=== PATIENT | male | born 1965 | race Caucasian/White ===

== ENCOUNTER 2017-10-03 14:51 | Emergency (ER) | payer OTHER ==
--- NOTE | 2017-10-03 15:02 | PDOC ---
History of Present Illness - General Stated Complaint: ABD PAIN Time Seen by Provider: 10/03/17 15:01 History Source: Patient Exam Limitations: No Limitations - History of Present Illness Initial Comments: This is a 51 YOM with h/o EtOH cirrhosis, liver cancer dx about one month ago, recent intraperitoneal chemo catheter placement (last week), and recent liver lesion ablation (last week) who was BIBA from [facility] for 10/10 abdominal pain worsening for the past week, acutely much worse since yesterday and worst in the suprapubic region, as well as chills and and rapid palpitations. The patient notes that the pain started immediately after getting his two abdominal procedures a week ago, and it has worsened since that time. Two days ago he relapsed on EtOH after abstaining for ~5 months, and he drank a large amount of vodka over the course of 24 hours. The pain worsened after this binge. He denies fever, vomiting, constipation, chest pain, SOB (other than caused by the abdominal pain), skin rash, skin color change, or other symptoms. Past History - Past Medical History Allergies/Adverse Reactions: Allergies Allergy/AdvReac Type Severity Reaction Status Date / Time shellfish derived Allergy Verified 12/11/15 18:24 hayfever Allergy Uncoded 12/11/15 18:24 Home Medications: Ambulatory Orders Spironolactone [Aldactone] 50 mg PO DAILY 12/11/15 Ferrous Sulfate [Feosol] 325 mg PO TIDCM #90 ud 12/15/15 Spironolactone [Aldactone -] 50 mg PO DAILY #30 tablet 12/15/15 Anemia: No Asthma: No Cancer: No Cardiac Disorders: Yes (Weak heart) CVA: No COPD: No CHF: No Dementia: No Diabetes: No GI Disorders: No Disorders: No HTN: Yes Hypercholesterolemia: No Kidney Stones: No Liver Disease: Yes (Cirrhosis) Seizures: No Thyroid Disease: No - Surgical History Abdominal Surgery: No Appendectomy: No Cardiac Surgery: No Cholecystectomy: No Lung Surgery: No Neurologic Surgery: No Orthopedic Surgery: Yes (R KNEE MINISCUS REPAIR R WRIST ORIF ) - Reproductive History Testicular Surgery: No - Suicide/Smoking/Psychosocial Hx Smoking History: Never smoked Hx Alcohol Use: Yes Drug/Substance Use Hx: No Substance Use Type: Alcohol Hx Substance Use Treatment: No Abd/GI Specific PMHX - Complaint Specific PMHX Hepatitis: No Pancreatitis: No Review of Systems - Review of Systems Able to Perform ROS?: Yes Constitutional: Yes: Chills, Malaise. No: Fever, Unexplained wgt Loss HEENTM: No: Nose Congestion, Throat Pain Respiratory: No: Cough, Shortness of Breath Cardiac (ROS): No: Chest Pain, Palpitations ABD/GI: Yes: Nausea, Other (abdominal pain). No: Constipated, Vomiting : No: Burning, Dysuria Musculoskeletal: No: Back Pain, Neck Pain Integumentary: No: Bruising, Rash Neurological: No: Headache, Numbness, Tingling, Weakness, Dizziness Endocrine: No: Unexplained Weight Gain, Unexplained Weight Loss *Physical Exam - Physical Exam General Appearance: Yes: Nourished, Other. No: Apparent Distress HEENT: positive: EOMI, Normal Voice, Hearing Grossly Normal. negative: Scleral Icterus (R), Scleral Icterus (L), Nasal Congestion Neck: positive: Trachea midline, Supple. negative: Tender, Rigid Respiratory/Chest: positive: Lungs Clear, Normal Breath Sounds. negative: Respiratory Distress, Crackles, Rhonchi, Stridor, Wheezing Cardiovascular: positive: Regular Rhythm, Regular Rate. negative: Murmur Gastrointestinal/Abdominal: positive: Normal Bowel Sounds, Soft. negative: Tender, Organomegaly, Pulsatile Mass, Guarding Musculoskeletal: positive: Normal Inspection. negative: Decreased Range of Motion, Vertebral Tenderness Extremity: positive: Normal Capillary Refill, Normal Inspection, Normal Range of Motion. negative: Tender, Cyanosis Integumentary: positive: Normal Color, Dry, Warm. negative: Erythema, Rash, Bruising Neurologic: positive: continuity coordinator II-XII NML intact, Fully Oriented, Alert, Normal Mood/ Affect, Normal Response, Motor Strength / ED Treatment Course - LABORATORY CBC & Chemistry Diagram: 10/03/17 16:00 10/03/17 16:00
[2017-10-03] MEDS ORDERED: SODIUM CHLORIDE 1,000 ML IV STA ×2 (15:22→20:43)
[2017-10-03] MEDS ORDERED: diazePAM CARPU-JECT 10 MG/2 ML DISP.SYRIN IVPUSH ONE (15:24)
[2017-10-03 15:28] VITALS: BMI 31.3
--- NOTE | 2017-10-03 15:51 | PDOC ---
Attending Attestation - Resident Resident Name: Gale Griffin - ED Attending Attestation I have performed the following: I have examined & evaluated the patient, The case was reviewed & discussed with the resident, I agree w/resident's findings & plan, Exceptions are as noted - HPI HPI: 10/03/17 15:46 "The patient is a 51 year old male, with a significant PMH of chronic alcohol abuse, liver cancer, cirrhosis, heart failure, who presents to the emergency department via [facility] with diffuse abdominal pain rated 10/10 in intensity, palpitations and chills. The patient states that he was recently diagnosed with liver cancer 1 month ago. Last week, he had an intraperitoneal chemo catheter placed and liver lesion ablation performed. He reports mild pain afterwards but states he was feeling well until yesterday. Pt states he has been sober for 4 months but admits to falling off the wagon and drinking vodka all day yesterday. He states that his abdominal pain began that evening after drinking. The patient denies chest pain, shortness of breath, headache and dizziness. Denies fever, nausea, vomit, diarrhea and constipation. Denies dysuria, frequency, urgency and hematuria. Allergies: shellfish derived " - Physicial Exam PE: 10/03/17 15:49 "GENERAL: Awake, alert, and fully oriented, + tremulous. HEAD: No signs of trauma EYES: PERRLA, EOMI, sclera anicteric, conjunctiva clear ENT: Auricles normal inspection, hearing grossly normal, nares patent, oropharynx clear without exudates. Moist mucosa NECK: Nontender, no stepoffs, Normal ROM, supple, no lymphadenopathy, JVD, or masses LUNGS: Breath sounds equal, clear to auscultation bilaterally. No wheezes, and no crackles HEART: tachycardic, normal S1 and S2, no murmurs, rubs or gallops ABDOMEN: + distended with + fluid wave, + periumbilical tenderness, No masses EXTREMITIES: Normal range of motion, no edema. No clubbing or cyanosis. No cords, erythema, or tenderness NEUROLOGICAL: Cranial nerves II through XII intact. 5/5 strength and sensation in all extremities, Normal speech, normal gait, normal cerebellar function SKIN: Warm, Dry, normal turgor, no rashes or lesions noted. " - Medical Decision Making 10/03/17 15:51 51 M with abdominal pain s/p ETOH abuse yesterday. Possible pancreatitis vs gastritis. Pt with h/o liver cancer and cirrhosis. No fevers, but will need to r /o SBP. ALso consider cholecystitis. - Labs - Bedside US to evaluate for fer and ascites - Possible paracentesis - CT abd/pelvis - IVF, benzos, morphine 10/03/17 16:17 Bedside sono reveals no evidence of acute fer, no drainable pocket for paracentesis <Anuj Woody - Last Filed: 10/03/17 16:18> Attestations - Attestations 10/03/17 15:54 Documentation prepared by Kuldeep Couch, acting as certified medical aide for Anuj Woody MD. <Kuldeep Couch - Last Filed: 10/03/17 15:54>
[2017-10-03] MEDS ORDERED: morphine CARPU-JECT 4 MG/1 ML DISP.SYRIN IVPUSH ONE ×2 (15:52→18:33)
[2017-10-03 16:11] LABS: BASO % 0.3 % (0-2.0); EOS % 0.2 % (0-4.5); HEMATOCRIT 29.5 % (35.4-49); LYMPH % 3.8 % (8-40); MCH 32.5 pg (25.7-33.7); MCHC 33.8 g/dl (32.0-35.9); MEAN CELL VOLUME 96.2 fl (80-96); MEAN PLT VOLUME 10.2 fl (7.5-11.1); MONO % 7.3 % (3.8-10.2); NEUT % 88.4 % (42.8-82.8); PLATELET COUNT 106 K/MM3 (134-434); RBC 3.07 M/mm3 (4.00-5.60); RDW 16.2 % (11.9-15.9); WHITE BLOOD COUNT 4.5 K/mm3 (4.0-10.0)
[2017-10-03 16:31] LABS: INR 1.44 (0.82-1.09); PROTHROMBIN TIME (PATIENT) 16.3 SEC (9.7-13.0)
[2017-10-03 16:33] LABS: VENOUS PH 7.46 (7.32-7.42)
[2017-10-03 16:34] LABS: ACTIVATED PTT 33.2 SECONDS (25.2-36.5)
[2017-10-03] MEDS ORDERED: morphine SULFATE 4 MG/ML VIAL ONE ×2 (16:36→19:18)
[2017-10-03 16:38] LABS: VENOUS PO2 37.9 mmHg (28-48)
[2017-10-03 17:39] LABS: URINE APPEARANCE CLEAR; URINE BILIRUBIN NEGATIVE (<2.0 mg/dL); URINE COLOR DKYELLOW; URINE GLUCOSE (UA) NEGATIVE (NEGATIVE); URINE KETONE NEGATIVE (NEGATIVE); URINE LEUK ESTERASE NEGATIVE (NEGATIVE); URINE NITRITE NEGATIVE (NEGATIVE); URINE PROTEIN NEGATIVE (NEGATIVE); URINE UROBILINOGEN 4.0 E.U/dl mg/dL (0.2-1.0)
[2017-10-03 17:43] LABS: EPI CELLS RARE /HPF (FEW); URINE MUCUS RARE
[2017-10-03] MEDS ORDERED: SODIUM CHLORIDE 0.9% 500 ML INFUS.BAG IV ONE (18:00)
[2017-10-03 18:17] LABS: SGPT/ALT 36 U/L (12-78)
[2017-10-03 18:25] LABS: ALBUMIN 3.3 g/dl (3.4-5.0); ALK PHOS 107 U/L (45-117); ANION GAP 11 (8-16); BILIRUBIN,TOTAL 2.4 mg/dL (0.2-1.0); BLOOD UREA NITROGEN 14 mg/dL (7-18); CHLORIDE 103 mmol/L (98-107); CO2 24 mmol/L (21-32); CREATININE 0.7 mg/dL (0.7-1.3); GLUCOSE,RANDOM 136 mg/dL (74-106); POTASSIUM 4.1 mmol/L (3.5-5.1); SGOT/AST 44 U/L (15-37); SODIUM 138 mmol/L (136-145); TOT PROT 6.7 g/dl (6.4-8.2)
--- NOTE | 2017-10-03 19:06 | PDOC ---
*Physical Exam - Vital Signs Last Vital Signs Temp Pulse Resp BP Pulse Ox 112 H 18 147/84 100 10/03/17 15:08 10/03/17 15:08 10/03/17 15:08 10/03/17 15:20 ED Treatment Course - LABORATORY CBC & Chemistry Diagram: 10/03/17 16:00 10/03/17 16:00 - ADDITIONAL ORDERS Additional order review: Laboratory Results 10/03/17 10/03/17 10/03/17 17:20 17:00 16:53 PT with INR INR PTT (Actin FS) VBG pH POC VBG pCO2 POC VBG pO2 Mixed VBG HCO3 Sodium Potassium Chloride Carbon Dioxide Anion Gap BUN Creatinine Creat Clearance w eGFR Random Glucose Lactic Acid 1.8 Calcium Total Bilirubin AST ALT Alkaline Phosphatase Ammonia 55.4 H Creatine Kinase Creatine Kinase Index CK-MB (CK-2) Total Protein Albumin Lipase Urine Color Dkyellow Urine Appearance Clear Urine pH 6.0 Ur Specific [place] 1.020 Urine Protein Negative Urine Glucose (UA) Negative Urine Ketones Negative Urine Blood 1+ H Urine Nitrite Negative Urine Bilirubin Negative Urine Urobilinogen 4.0 e.u/dl Ur Leukocyte Esterase Negative Urine WBC (Auto) <1 Urine RBC (Auto) 1 Ur Epithelial Cells Rare Urine Mucus Rare Blood Type Antibody Screen 10/03/17 10/03/17 10/03/17 16:13 16:00 16:00 PT with INR INR PTT (Actin FS) VBG pH 7.46 H POC VBG pCO2 35.0 L POC VBG pO2 37.9 Mixed VBG HCO3 24.5 Sodium Potassium Chloride Carbon Dioxide Anion Gap BUN Creatinine Creat Clearance w eGFR Random Glucose Lactic Acid Calcium Total Bilirubin AST ALT Alkaline Phosphatase Ammonia Creatine Kinase Creatine Kinase Index CK-MB (CK-2) Cancelled Total Protein Albumin Lipase Cancelled Urine Color Urine Appearance Urine pH Ur Specific [place] Urine Protein Urine Glucose (UA) Urine Ketones Urine Blood Urine Nitrite Urine Bilirubin Urine Urobilinogen Ur Leukocyte Esterase Urine WBC (Auto) Urine RBC (Auto) Ur Epithelial Cells Urine Mucus Blood Type Antibody Screen 10/03/17 10/03/17 10/03/17 16:00 16:00 16:00 PT with INR 16.30 H INR 1.44 H PTT (Actin FS) 33.2 VBG pH POC VBG pCO2 POC VBG pO2 Mixed VBG HCO3 Sodium 138 Potassium 4.1 Chloride 103 Carbon Dioxide 24 Anion Gap 11 BUN 14 D Creatinine 0.7 Creat Clearance w eGFR > 60 Random Glucose 136 H D Lactic Acid Calcium 8.0 L Total Bilirubin 2.4 H D AST 44 H D ALT 36 Alkaline Phosphatase 107 Ammonia Creatine Kinase 180 Creatine Kinase Index Cancelled CK-MB (CK-2) Cancelled Total Protein 6.7 D Albumin 3.3 L D Lipase Urine Color Urine Appearance Urine pH Ur Specific [place] Urine Protein Urine Glucose (UA) Urine Ketones Urine Blood Urine Nitrite Urine Bilirubin Urine Urobilinogen Ur Leukocyte Esterase Urine WBC (Auto) Urine RBC (Auto) Ur Epithelial Cells Urine Mucus Blood Type Cancelled Antibody Screen Cancelled 10/03/17 10/03/17 15:34 15:34 PT with INR INR PTT (Actin FS) VBG pH POC VBG pCO2 POC VBG pO2 Mixed VBG HCO3 Sodium Potassium Chloride Carbon Dioxide Anion Gap BUN Creatinine Creat Clearance w eGFR Random Glucose Lactic Acid 2.9 H* Calcium Total Bilirubin AST ALT Alkaline Phosphatase Ammonia 52.4 H Creatine Kinase Creatine Kinase Index CK-MB (CK-2) Total Protein Albumin Lipase Urine Color Urine Appearance Urine pH Ur Specific [place] Urine Protein Urine Glucose (UA) Urine Ketones Urine Blood Urine Nitrite Urine Bilirubin Urine Urobilinogen Ur Leukocyte Esterase Urine WBC (Auto) Urine RBC (Auto) Ur Epithelial Cells Urine Mucus Blood Type Antibody Screen 10/03/17 16:00 RBC 3.07 L MCV 96.2 H MCHC 33.8 RDW 16.2 H MPV 10.2 D Neutrophils % 88.4 H D Lymphocytes % 3.8 L D Monocytes % 7.3 Eosinophils % 0.2 D Basophils % 0.3 - Medications Given in the ED: ED Medications Discontinued Medications Generic Name Dose Route Start Last Admin Trade Name Freq PRN Reason Stop Dose Admin Diazepam 5 mg 10/03/17 15:24 10/03/17 17:34 Valium Injection - IVPUSH 10/03/17 15:25 Not Given ONCE ONE Sodium Chloride 1,000 mls @ 1,000 mls/hr 10/03/17 15:22 10/03/17 16:33 Normal Saline - IV 10/03/17 16:21 1,000 mls/hr ASDIR STA Administration Morphine Sulfate 4 mg 10/03/17 15:52 10/03/17 16:52 Morphine Injection - IVPUSH 10/03/17 15:53 4 mg ONCE ONE Administration Sodium Chloride 500 ml 10/03/17 18:00 10/03/17 18:03 Normal Saline - IV 10/03/17 18:01 500 ml ONCE ONE Administration Medical Decision Making - Medical Decision Making 10/03/17 19:[address] Mcpherson. 10/03/17 20:11 CT expressed concern over abdomen/pelvis w/ contrast as patient allergic to shellfish. Discussed with patient who endorsed having IV contrast previously. Patient elected to proceed with scan. 10/03/17 21:39 CT revealed incarcerated umbilical hernia containing small bowel w/ resultant proximal small bowel obstruction. Discussed with surgery team who believe patient would benefit from tertiary care center services due to cirrhotic status. Discussed with Dr. Rodriguez (surgery) at [facility] who accepted patient for further care. Transferring to [facility]. *DC/Admit/Observation/Transfer Diagnosis at time of Disposition: Umbilical hernia, incarcerated - Discharge Dispostion Disposition: TRANSFER ACUTE CARE/OTHER HOSP - Referrals - Patient Instructions - Post Discharge Activity
[2017-10-03] MEDS ORDERED: ONDANSETRON 4 MG/2 ML VIAL IVPUSH ONE (20:43)
[2017-10-03] MEDS ORDERED: ONDANSETRON 4 MG/2 ML VIAL ONE (20:49)
[2017-10-03] MEDS ORDERED: chlordiazePOXIDE HCL 25 MG CAPSULE PO ONE (21:49)
--- NOTE | 2017-10-03 21:50 | PN ---
Progress Note (short form) - Note Progress Note: surgery 51m with heart failure, etoh cirrhosis, metastatic liver ca, on intrperitoneal chemotherapy, presented for abd pain with ct showing sbo secondary to incarcerated umbilical hernia. ascites noted on ct with cirrhotic liver changes and likely malignancy. Laboratory Tests 10/03/17 10/03/17 10/03/17 16:00 16:00 16:00 Plt Count 106 L D PT with INR 16.30 H Total Bilirubin 2.4 H D Ammonia 10/03/17 16:53 Plt Count PT with INR Total Bilirubin Ammonia 55.4 H A/P Sbo in terminal liver ca, cirrhotic, chf, continued etoh usage. Pt is not a candidate for surgery at a community hospital due to liver disease and heart disease. Recommend transfer to tertiary care center. Discussed with ER physician. Should have ngt placed carefully to avoid trauma to likely varices.
[2017-10-03] MEDS ORDERED: chlordiazePOXIDE HCL 25 MG CAPSULE ONE (21:51)
[2017-10-03] MEDS ORDERED: chlordiazePOXIDE 5 MG CAPSULE PO ONE (22:00)
[2017-10-03] MEDS ORDERED: morphine CARPU-JECT 2 MG/1 ML DISP.SYRIN IVPUSH ONE (22:55)
[2017-10-03] MEDS ORDERED: MORPHINE SULFATE 2 MG/ML VIAL ONE (23:10)
[2017-10-03 23:28] VITALS: BP 158/84; PULSE 90; TEMP 98.1
--- NOTE | 2017-10-04 10:42 | EKG ---
Test Reason : Blood Pressure : / mmHG Vent. Rate : 109 BPM Atrial Rate : 109 BPM P-R Int : 138 ms QRS Dur : 100 ms QT Int : 368 ms P-R-T Axes : -24 -12 034 degrees QTc Int : 495 ms SINUS TACHYCARDIA NONSPECIFIC ST AND T WAVE ABNORMALITY ABNORMAL ECG NO PREVIOUS ECGS AVAILABLE Confirmed by NAREN TAYLOR, KUMAR ([id number]) on 10/04/2017 10:41:47 AM Referred By: Confirmed By:KUMAR SNEED MD
== END 2017-10-03 23:43 | disposition short-term general hospital (02) ==
LOC: JER 14:51
PROC: 3E0337Z Introduction of Electrolytic and Water Balance Substance into Peripheral Vein, Percutaneous Approach (ICD-10-PCS; principal; 2017-10-03)
PROC: 3E033NZ Introduction of Analgesics, Hypnotics, Sedatives into Peripheral Vein, Percutaneous Approach (ICD-10-PCS; 2017-10-03)
PROC: 3E033NZ Introduction of Analgesics, Hypnotics, Sedatives into Peripheral Vein, Percutaneous Approach (ICD-10-PCS; 2017-10-03)
PROC: 3E033NZ Introduction of Analgesics, Hypnotics, Sedatives into Peripheral Vein, Percutaneous Approach (ICD-10-PCS; 2017-10-03)
PROC: 3E033GC Introduction of Other Therapeutic Substance into Peripheral Vein, Percutaneous Approach (ICD-10-PCS; 2017-10-03)
DX: K42.0 Umbilical hernia with obstruction, without gangrene (principal); K70.31 Alcoholic cirrhosis of liver with ascites; F10.10 Alcohol abuse, uncomplicated; C22.9 Malignant neoplasm of liver, not specified as primary or secondary; I11.0 Hypertensive heart disease with heart failure
CPT/HCPCS: 36415; 71045-TC-FY; 74177-TC; 80053; 81003; 81015; 82140; 82550; 82803; 83605; 83690; 85025; 85610; 85730; 87040; 87086; 93005; 93010; 96361; 96374; 96375; 96376; 99285-25; J7030

== ENCOUNTER 2018-09-25 17:07 | Inpatient (IN) | payer OTHER ==
[2018-09-25 20:50] VITALS: BMI 33.5
--- NOTE | 2018-09-26 01:16 | HP ---
CIWA Score Nausea/Vomitin-No Nausea/No Vomiting Muscle Tremors: 4-Moderate,w/Arms Extend Anxiety: 4-Mod. Anxious/Guarded Agitation: 4-Moderately Restless Paroxysmal Sweats: 3 Orientation: 0-Oriented Tacttile Disturbances: 0-None Auditory Disturbances: 0-None Visual Disturbances: 0-None Headache: 0-None Present CIWA-Ar Total Score: 15 - Admission Criteria OAS Guidelines: Admission for Medically Managed Detox: Requires at least one of the followin. CIWA greater than 12 2. Seizures within the past 24 hours 3. Delirium tremens within the past 24 hours 4. Hallucinations within the past 24 hours 5. Acute intervention needed for co occurring medical disorder 6. Acute intervention needed for co occurring psychiatric disorder 7. Severe withdrawal that cannot be handled at a lower level of care (continued vomiting, continued diarrhea, abnormal vital signs) requiring intravenous medication and/or fluids 8. Patient presents the following: CIWA greater than 12 Admission Criteria Met: Admission criteria met Admission ROS [facility] Chief Complaint: C/O WITHDRAWAL SX'S Allergies/Adverse Reactions: Allergies Allergy/AdvReac Type Severity Reaction Status Date / Time shellfish derived Allergy Verified 09/25/18 20:36 hayfever Allergy Uncoded 09/25/18 20:36 History of Present Illness: 52 Y.O. MALE WITH HX/O ALCOHOLISM HERE FOR DETOX. CLIENT PRESENTS WITH C/O WITHDRAWAL SX'S. CIWA 15. REPORTS DRINKING DAILY. LAST DRINK 1 DAY AGO. REPORTS LONGEST CLEAN TIME 3 MONTHS. DENIES HX/O SEIZURES BLACK OUTS, SI/HI/AVH. DOMICILED, UNEMPLOYED- DISABILITY, DENIES LEGALS Exam Limitations: No Limitations - Ebola screening Have you traveled outside of the country in the last 21 days: No (N) Have you had contact with anyone from an Ebola affected area: No Do you have a fever: No - Review of Systems Constitutional: Chills, Loss of Appetite, Night Sweats, Changes in sleep EENT: reports: Other (EYE GLASSES) Respiratory: reports: No Symptoms reported Cardiac: reports: No Symptoms Reported GI: reports: Poor Appetite, Poor Fluid Intake : reports: Frequency Musculoskeletal: reports: Joint Pain Integumentary: reports: Bruising Neuro: reports: Headache, Tremors Endocrine: reports: No Symptoms Reported Hematology: reports: Blood 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") Psychiatric: reports: Orientated x3 Other Systems: Reviewed and Negative Patient History - Patient Medical History Hx Anemia: No Hx Asthma: No Hx Chronic Obstructive Pulmonary Disease (COPD): No Hx Cancer: No Hx Cardiac Disorders: Yes (Weak heart) Hx Congestive Heart Failure: No Hx Hypertension: Yes Hx Hypercholesterolemia: No Hx Pacemaker: No HX Cerebrovascular Accident: No Hx Seizures: No Hx Dementia: No Hx Diabetes: No Hx Gastrointestinal Disorders: No Hx Liver Disease: Yes (Cirrhosis) Hx Genitourinary Disorders: No Hx Sexually Transmitted Disorders: No Hx Renal Disease (ESRD): No Hx Thyroid Disease: No Hx Human Immunodeficiency Virus (HIV): No Hx Hepatitis C: No Hx Depression: No Hx Suicide Attempt: No Hx Bipolar Disorder: No Hx Schizophrenia: No Other Medical History: "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" - Patient Surgical History Past Surgical History: Yes Hx Neurologic Surgery: No Hx Cataract Extraction: No Hx Cardiac Surgery: No Hx Lung Surgery: No Hx Breast Surgery: No Hx Breast Biopsy: No Hx Abdominal Surgery: No Hx Appendectomy: No Hx Cholecystectomy: No Hx Genitourinary Surgery: No Hx Section: No Hx Orthopedic Surgery: Yes (R KNEE MINISCUS REPAIR R WRIST ORIF ) Other Surgical History: R UPPER BACK LYPOMA REMOVAL Anesthesia Reaction: No - PPD History Previous Implant?: Yes Documented Results: Negative w/proof Implanted On Prior [facility] Admission?: Yes Date: 12/14/15 PPD to be Administered?: Yes - Smoking Cessation Smoking history: Never smoked Have you smoked in the past 12 months: No Hx Chewing Tobacco Use: No Initiated information on smoking cessation: No - Substance & Tx. History Hx Alcohol Use: Yes Hx Substance Use: Yes Substance Use Type: Alcohol Hx Substance Use Treatment: Yes ([facility]) - Substances abused Alcohol Substance route: Oral Frequency: Daily Amount used: 6 24 OZ cans of beer or more Age of first use: 10 Date of last use: 09/25/18 Family Disease History - Family Disease History Family Disease History: CA: Father (ETOH/ ), Mother (MOUTH CANCER LIVER CA), Respiratory: Father Admission Physical Exam BHS - Vital Signs Vital Signs: Vital Signs - 24 hr 09/25/18 20:35 Temperature 98.8 F Pulse Rate 92 H Respiratory 20 Rate Blood Pressure 140/85 - Physical General Appearance: Yes: Appropriately Dressed, Alcohol on Breath, Tremorous, Anxious HEENTM: Yes: EOMI, Normal ENT Inspection, Normocephalic, Normal Voice, ARCHIE, Other (GLASSES) Respiratory: Yes: Chest Non-Tender, Lungs Clear, Normal Breath Sounds, No Respiratory Distress, No Accessory Muscle Use Neck: Yes: No masses,lesions,Nodules, Supple, Trachea in good position Breast: Yes: Breast Exam Deferred Cardiology: Yes: Regular Rhythm, S1, S2, Tachycardia Abdominal: Yes: Normal Bowel Sounds, Non Tender, Soft, Protuberent Genitourinary: Yes: Within Normal Limits Back: Yes: Normal Inspection Musculoskeletal: Yes: Other (UNSTEADY GAIT) Extremities: Yes: Normal Capillary Refill, Non-Tender, Tremors, Pedal Edema ( BLE TRACE EDEMA), Other (LIMITED ROM TO BLE) Neurological: Yes: Fully Oriented, Alert, Motor Strength 5/5, Normal Mood/Affect Integumentary: Yes: Dry, Warm, Pitting Edema (TRACE TO BLE) Lymphatic: Yes: Within Normal Limits - Diagnostic (1) Alcohol dependence with uncomplicated withdrawal Current Visit: Yes Status: Acute (2) Cirrhosis of liver Current Visit: Yes Status: Chronic Qualifiers: Hepatic cirrhosis type: alcoholic cirrhosis Ascites presence: with ascites Qualified Code(s): K70.31 - Alcoholic cirrhosis of liver with ascites (3) HTN (hypertension) Current Visit: Yes Status: Chronic Qualifiers: Hypertension type: essential hypertension Qualified Code(s): I10 - Essential (primary) hypertension Cleared for Admission S - Detox or Rehab [facility] Level of Care: Medically Managed Detox Regimen/Protocol: Librium Claeared for Rehab Admission: No Breathalyzer - Breathalyzer Breathalyzer: 0.205 Urine Drug Screen - Test Device Lot number: [id number] Expiration date: 06/14/20 - Control Is test valid?: Yes - Results Drug screen NEGATIVE: Yes Inpatient Rehab Admission - Rehab Decision to Admit Inpatient rehab admission?: No
[2018-09-26] MEDS ORDERED: guaiFENesin 200 MG/10 ML 10 ML UNIT-DOSE CUPS PO PRN (01:53)
[2018-09-26] MEDS ORDERED: MAGNESIUM HYDROX 2400MG/30ML ORAL SUSPENSION 30 ML CUP PO PRN (01:53)
[2018-09-26] MEDS ORDERED: IBUPROFEN 400 MG TABLET (FP) PO PRN (01:53)
[2018-09-26] MEDS ORDERED: BISMUTH SUBSALICYLATE 524 MG/30 ML UD PO PRN (01:53)
[2018-09-26] MEDS ORDERED: METHOCARBAMOL 500 MG TABLET PO PRN (01:53)
[2018-09-26] MEDS ORDERED: hydrOXYzine PAMOATE 25 MG CAPSULE (FP) PO PRN (01:53)
[2018-09-26] MEDS ORDERED: DICYCLOMINE HCL 10 MG CAPSULE PO PRN (01:53)
[2018-09-26] MEDS ORDERED: MENTHOL/PHENOL 1 EACH UD MM PRN (01:53)
[2018-09-26] MEDS ORDERED: ACETAMINOPHEN 325 MG TABLET (FP) PO PRN ×2 (01:53)
[2018-09-26] MEDS ORDERED: MAG HYDROX/AL HYDROX/SIMETH 30 ML UNIT-DOSE CUP PO PRN (01:53)
[2018-09-26] MEDS ORDERED: MAGNESIUM CITRATE 300 ML BOTTLE PO PRN (01:53)
[2018-09-26] MEDS ORDERED: ONDANSETRON *ODT* 4 MG TABLET SL PRN (01:53)
[2018-09-26] MEDS ORDERED: P-EPHED 60MG/TRIPROLIDI 2.5MG TABLET PO PRN (01:53)
[2018-09-26] MEDS ORDERED: chlordiazePOXIDE HCL 25 MG CAPSULE PO PRN (01:53)
[2018-09-26] MEDS: SUCRALFATE 1 GM TABLET (FP) PO SCH ×3 (06:53→22:07)
[2018-09-26] MEDS: chlordiazePOXIDE HCL 25 MG CAPSULE PO SCH ×4 (06:53→22:07)
--- NOTE | 2018-09-26 08:44 | EKG ---
Test Reason : Blood Pressure : / mmHG Vent. Rate : 098 BPM Atrial Rate : 098 BPM P-R Int : 138 ms QRS Dur : 104 ms QT Int : 410 ms P-R-T Axes : 039 -09 029 degrees QTc Int : 523 ms NORMAL SINUS RHYTHM NONSPECIFIC ST AND T WAVE ABNORMALITY ABNORMAL ECG WHEN COMPARED WITH ECG OF 03-OCT-2017 15:16, NONSPECIFIC T WAVE ABNORMALITY, WORSE IN ANTEROLATERAL LEADS Confirmed by NAREN TAYLOR, KUMAR ([id number]) on 09/26/2018 8:44:50 AM Referred By: VIVEK Confirmed By:KUMAR SNEED MD
[2018-09-26] MEDS: FUROSEMIDE 40 MG TABLET (FP) PO SCH (10:20)
[2018-09-26] MEDS: PRENATAL VITAMINS W/ FOLIC ACID TABLET (FP) PO SCH (10:20)
[2018-09-26] MEDS: METOPROLOL TARTRATE 25 MG TABLET (FP) PO SCH ×2 (11:51→22:07)
[2018-09-26] MEDS: RIFAXIMIN 550 MG TABLET (UD) PO SCH ×2 (11:52→22:07)
[2018-09-26] MEDS: SPIRONOLACTONE 25 MG TABLET (FP) PO SCH (11:52)
[2018-09-26 12:20] LABS: HEMATOCRIT 29.9 % (35.4-49); HEMOGLOBIN 9.7 GM/dL (11.7-16.9); MCH 28.1 pg (25.7-33.7); MCHC 32.6 g/dl (32.0-35.9); MEAN CELL VOLUME 86.1 fl (80-96); MEAN PLT VOLUME 8.6 fl (7.5-11.1); RBC 3.47 M/mm3 (4.00-5.60); RDW 20.5 % (11.9-15.9)
[2018-09-26 12:45] LABS: ALBUMIN 3.4 g/dl (3.4-5.0); BILIRUBIN,TOTAL 2.2 mg/dL (0.2-1); BLOOD UREA NITROGEN 10.2 mg/dL (7-18); CALCIUM 8.1 mg/dL (8.5-10.1); CREATININE 0.6 mg/dL (0.55-1.3); POTASSIUM 3.8 mmol/L (3.5-5.1); TOT PROT 6.6 g/dl (6.4-8.2)
[2018-09-26 13:24] LABS: PLATELET COUNT 36 K/MM3 (134-434)
--- NOTE | 2018-09-26 14:35 | PN ---
[facility] CIWA - CIWA Score Nausea/Vomitin-Mild Nausea/No Vomiting Muscle Tremors: 1-None Visible, but [place] Anxiety: 1-Mildly Anxious Agitation: 1-Slight > Activity Paroxysmal Sweats: 1-Minimal Palms Moist Orientation: 0-Oriented Tacttile Disturbances: 0-None Auditory Disturbances: 7Continuous Hallucination Headache: 1-Very Mild BHS Progress Note (SOAP) Subjective: pt states he is feeling good Vital Signs - 24 hr 09/25/18 09/26/18 09/26/18 20:35 03:36 04:00 Temperature 98.8 F 98.0 F Pulse Rate 92 H 101 H 101 H Respiratory 20 20 Rate Blood Pressure 140/85 146/82 09/26/18 09/26/18 09/26/18 04:30 05:00 05:30 Temperature Pulse Rate 100 H 100 H 103 H Respiratory 20 20 Rate Blood Pressure 09/26/18 09/26/18 09/26/18 05:54 06:00 06:30 Temperature 97.0 F L Pulse Rate 103 H 107 H 110 H Respiratory 18 18 18 Rate Blood Pressure 107/68 09/26/18 09/26/18 09/26/18 07:00 07:30 08:00 Temperature Pulse Rate 106 H 112 H 115 H Respiratory 18 18 18 Rate Blood Pressure 09/26/18 09/26/18 09/26/18 08:30 09:00 09:30 Temperature Pulse Rate 106 H 110 H 112 H Respiratory 18 18 18 Rate Blood Pressure 09/26/18 09/26/18 09/26/18 09:35 10:00 10:30 Temperature 98.6 F Pulse Rate 106 H 103 H 108 H Respiratory 18 18 18 Rate Blood Pressure 116/66 09/26/18 09/26/18 09/26/18 11:00 11:30 12:00 Temperature Pulse Rate 100 H 110 H 106 H Respiratory 18 18 18 Rate Blood Pressure 09/26/18 09/26/18 09/26/18 12:30 13:00 13:30 Temperature Pulse Rate 117 H 112 H 110 H Respiratory 18 18 18 Rate Blood Pressure 09/26/18 09/26/18 13:44 14:00 Temperature 97.4 F L Pulse Rate 77 116 H Respiratory 18 18 Rate Blood Pressure Laboratory Tests 09/26/18 09/26/18 09/26/18 07:30 07:30 07:30 WBC 2.0 L RBC 3.47 L Hgb 9.7 L Hct 29.9 L MCV 86.1 MCH 28.1 D MCHC 32.6 RDW 20.5 H Plt Count 36 L* D MPV 8.6 D Platelet Comment No clumping noted Sodium 141 Potassium 3.8 Chloride 109 H Carbon Dioxide 27 Anion Gap 5 L BUN 10.2 Creatinine 0.6 Est GFR (CKD-EPI)AfAm 132.11 Est GFR (CKD-EPI)NonAf 113.99 Random Glucose 93 Calcium 8.1 L Total Bilirubin 2.2 H AST 64 H ALT 28 Alkaline Phosphatase 164 H Total Protein 6.6 Albumin 3.4 RPR Titer Nonreactive low HCt- pt has known anemia low platelets- 36, pt has cirrhosis,probable enlarged spleen- plt sequestration no c/o bleeding a/p: continue detox protocol pt with known cirrhosis- probable etiology of abnormal blood tests
[2018-09-26] MEDS: THIAMINE HCL 100 MG TABLET (FP) PO SCH (22:07)
[2018-09-26 22:33] LABS: EPI CELLS 0 /HPF (0-5/HPF); HYALINE CASTS 0 /lpf (0-8); PH,URINE 7.5 (5.0-8.0); URINE APPEARANCE CLEAR; URINE BACTERIA 0.7 /hpf (NEGATIVE); URINE BILIRUBIN NEGATIVE (NEGATIVE); URINE COLOR YELLOW; URINE GLUCOSE (UA) NEGATIVE (NEGATIVE); URINE KETONE NEGATIVE (NEGATIVE); URINE LEUK ESTERASE NEGATIVE (NEGATIVE); URINE NITRITE NEGATIVE (NEGATIVE); URINE PROTEIN NEGATIVE (NEGATIVE); URINE RBC 12 /hpf (0-4); URINE WBC 0 /hpf (0-5)
[2018-09-27] MEDS: chlordiazePOXIDE HCL 25 MG CAPSULE PO SCH ×4 (05:30→22:09)
[2018-09-27] MEDS: SUCRALFATE 1 GM TABLET (FP) PO SCH ×3 (05:30→22:09)
[2018-09-27] MEDS: SPIRONOLACTONE 25 MG TABLET (FP) PO SCH (10:08)
[2018-09-27] MEDS: RIFAXIMIN 550 MG TABLET (UD) PO SCH ×2 (10:08→22:09)
[2018-09-27] MEDS: PRENATAL VITAMINS W/ FOLIC ACID TABLET (FP) PO SCH (10:08)
[2018-09-27] MEDS: FUROSEMIDE 40 MG TABLET (FP) PO SCH (10:09)
[2018-09-27] MEDS: METOPROLOL TARTRATE 25 MG TABLET (FP) PO SCH ×2 (10:09→22:09)
--- NOTE | 2018-09-27 14:31 | PN ---
S CIWA - CIWA Score Nausea/Vomitin-No Nausea/No Vomiting Muscle Tremors: 2 Anxiety: 2 Agitation: 1-Slight > Activity Paroxysmal Sweats: 1-Minimal Palms Moist Orientation: 0-Oriented Tacttile Disturbances: 0-None Auditory Disturbances: 1-Very Mild Visual Disturbances: 0-None Headache: 0-None Present CIWA-Ar Total Score: 7 BHS Progress Note (SOAP) Subjective: Sweating (Mild), Anxious (Mild). Patient Reports that Current Withdrawal / Detox Symptoms are Relatively Mild At This Time. Objective: PATIENT A & O X 3, OBSERVED AMBULATING ON UNIT UNASSISTED. IN NO ACUTE DISTRESS. 09/27/18 14:32 Vital Signs Temperature 97.1 F L 09/27/18 13:06 Pulse Rate 70 09/27/18 13:06 Respiratory Rate 18 09/27/18 13:06 Blood Pressure 138/78 09/27/18 13:06 O2 Sat by Pulse Oximetry (%) Laboratory Tests 09/26/18 09/26/18 09/26/18 07:30 07:30 07:30 WBC 2.0 L RBC 3.47 L Hgb 9.7 L Hct 29.9 L MCV 86.1 MCH 28.1 D MCHC 32.6 RDW 20.5 H Plt Count 36 L* D MPV 8.6 D Platelet Comment No clumping noted Sodium 141 Potassium 3.8 Chloride 109 H Carbon Dioxide 27 Anion Gap 5 L BUN 10.2 Creatinine 0.6 Est GFR (CKD-EPI)AfAm 132.11 Est GFR (CKD-EPI)NonAf 113.99 Random Glucose 93 Calcium 8.1 L Total Bilirubin 2.2 H AST 64 H ALT 28 Alkaline Phosphatase 164 H Total Protein 6.6 Albumin 3.4 Urine Color Urine Appearance Urine pH Ur Specific [place] Urine Protein Urine Glucose (UA) Urine Ketones Urine Blood Urine Nitrite Urine Bilirubin Urine Urobilinogen Ur Leukocyte Esterase Urine WBC (Auto) Urine RBC (Auto) Urine Casts (Auto) U Epithel Cells (Auto) Urine Bacteria (Auto) RPR Titer Nonreactive 09/26/18 17:09 WBC RBC Hgb Hct MCV MCH MCHC RDW Plt Count MPV Platelet Comment Sodium Potassium Chloride Carbon Dioxide Anion Gap BUN Creatinine Est GFR (CKD-EPI)AfAm Est GFR (CKD-EPI)NonAf Random Glucose Calcium Total Bilirubin AST ALT Alkaline Phosphatase Total Protein Albumin Urine Color Yellow Urine Appearance Clear Urine pH 7.5 D Ur Specific [place] 1.009 L Urine Protein Negative Urine Glucose (UA) Negative Urine Ketones Negative Urine Blood Trace Urine Nitrite Negative Urine Bilirubin Negative Urine Urobilinogen 1.0 Ur Leukocyte Esterase Negative Urine WBC (Auto) 0 Urine RBC (Auto) 12 Urine Casts (Auto) 0 U Epithel Cells (Auto) 0 Urine Bacteria (Auto) 0.7 RPR Titer LABS NOTED. PATIENT HAS BEEN PANCYTOPENIC ON PREVIOUS ADMISSIONS. 09/27/18 14:34 Assessment: 09/27/18 14:32 WITHDRAWAL SYMPTOMS. PANCYTOPENIA ELEVATED AST, ALKALINE PHOSPHATASE LEVEL. HYPERBILIRUBINEMIA. (PATIENT REPORTED HISTORY OF CIRRHOSIS OF LIVER ON DETOX ADMISSION). 09/27/18 14:33 Plan: CONTINUE DETOX.
[2018-09-27] MEDS: THIAMINE HCL 100 MG TABLET (FP) PO SCH (22:09)
[2018-09-27] MEDS: MELATONIN 5 MG TABLETS PO PRN (22:09)
[2018-09-28] MEDS ORDERED: chlordiazePOXIDE HCL 10 MG CAPSULE PO PRN (05:00)
[2018-09-28] MEDS: chlordiazePOXIDE HCL 10 MG CAPSULE PO SCH ×4 (05:14→22:14)
[2018-09-28] MEDS: SUCRALFATE 1 GM TABLET (FP) PO SCH ×3 (07:50→22:14)
[2018-09-28] MEDS: FUROSEMIDE 40 MG TABLET (FP) PO SCH (10:06)
[2018-09-28] MEDS: SPIRONOLACTONE 25 MG TABLET (FP) PO SCH (10:06)
[2018-09-28] MEDS: RIFAXIMIN 550 MG TABLET (UD) PO SCH ×2 (10:07→22:14)
[2018-09-28] MEDS: PRENATAL VITAMINS W/ FOLIC ACID TABLET (FP) PO SCH (10:07)
[2018-09-28] MEDS: METOPROLOL TARTRATE 25 MG TABLET (FP) PO SCH ×2 (10:07→22:14)
--- NOTE | 2018-09-28 13:44 | PN ---
S CIWA - CIWA Score Nausea/Vomitin-No Nausea/No Vomiting Muscle Tremors: 2 Anxiety: 1-Mildly Anxious Agitation: 1-Slight > Activity Paroxysmal Sweats: 1-Minimal Palms Moist Orientation: 0-Oriented Tacttile Disturbances: 0-None Auditory Disturbances: 0-None Visual Disturbances: 0-None Headache: 0-None Present CIWA-Ar Total Score: 5 BHS Progress Note (SOAP) Subjective: little anxiety interrupted sleep Objective: 09/28/18 13:44 Vital Signs Temperature 97.8 F 09/28/18 13:37 Pulse Rate 75 09/28/18 13:37 Respiratory Rate 18 09/28/18 13:37 Blood Pressure 121/77 09/28/18 13:37 O2 Sat by Pulse Oximetry (%) Laboratory Tests 09/26/18 09/26/18 09/26/18 07:30 07:30 07:30 WBC 2.0 L RBC 3.47 L Hgb 9.7 L Hct 29.9 L MCV 86.1 MCH 28.1 D MCHC 32.6 RDW 20.5 H Plt Count 36 L* D MPV 8.6 D Platelet Comment No clumping noted Sodium 141 Potassium 3.8 Chloride 109 H Carbon Dioxide 27 Anion Gap 5 L BUN 10.2 Creatinine 0.6 Est GFR (CKD-EPI)AfAm 132.11 Est GFR (CKD-EPI)NonAf 113.99 Random Glucose 93 Calcium 8.1 L Total Bilirubin 2.2 H AST 64 H ALT 28 Alkaline Phosphatase 164 H Total Protein 6.6 Albumin 3.4 Urine Color Urine Appearance Urine pH Ur Specific [place] Urine Protein Urine Glucose (UA) Urine Ketones Urine Blood Urine Nitrite Urine Bilirubin Urine Urobilinogen Ur Leukocyte Esterase Urine WBC (Auto) Urine RBC (Auto) Urine Casts (Auto) U Epithel Cells (Auto) Urine Bacteria (Auto) RPR Titer Nonreactive 09/26/18 17:09 WBC RBC Hgb Hct MCV MCH MCHC RDW Plt Count MPV Platelet Comment Sodium Potassium Chloride Carbon Dioxide Anion Gap BUN Creatinine Est GFR (CKD-EPI)AfAm Est GFR (CKD-EPI)NonAf Random Glucose Calcium Total Bilirubin AST ALT Alkaline Phosphatase Total Protein Albumin Urine Color Yellow Urine Appearance Clear Urine pH 7.5 D Ur Specific [place] 1.009 L Urine Protein Negative Urine Glucose (UA) Negative Urine Ketones Negative Urine Blood Trace Urine Nitrite Negative Urine Bilirubin Negative Urine Urobilinogen 1.0 Ur Leukocyte Esterase Negative Urine WBC (Auto) 0 Urine RBC (Auto) 12 Urine Casts (Auto) 0 U Epithel Cells (Auto) 0 Urine Bacteria (Auto) 0.7 RPR Titer labs noted aaox3 ambulating no acute distress Assessment: 09/28/18 13:44 mild withdrawal sx Plan: continue detox increase fluids
[2018-09-28] MEDS: THIAMINE HCL 100 MG TABLET (FP) PO SCH (22:14)
[2018-09-28] MEDS: MELATONIN 5 MG TABLETS PO PRN (22:15)
[2018-09-29] MEDS: SUCRALFATE 1 GM TABLET (FP) PO SCH ×3 (05:14→22:14)
[2018-09-29] MEDS: chlordiazePOXIDE HCL 10 MG CAPSULE PO SCH ×2 (05:14→17:52)
[2018-09-29] MEDS: FUROSEMIDE 40 MG TABLET (FP) PO SCH (10:10)
[2018-09-29] MEDS: PRENATAL VITAMINS W/ FOLIC ACID TABLET (FP) PO SCH (10:10)
[2018-09-29] MEDS: RIFAXIMIN 550 MG TABLET (UD) PO SCH ×2 (10:10→22:14)
[2018-09-29] MEDS: SPIRONOLACTONE 25 MG TABLET (FP) PO SCH (10:10)
[2018-09-29] MEDS: METOPROLOL TARTRATE 25 MG TABLET (FP) PO SCH ×2 (10:11→22:14)
--- NOTE | 2018-09-29 10:24 | PN ---
S CIWA - CIWA Score Nausea/Vomitin-No Nausea/No Vomiting Muscle Tremors: 2 Anxiety: 2 Agitation: 1-Slight > Activity Paroxysmal Sweats: 2 Orientation: 0-Oriented Tacttile Disturbances: 0-None Auditory Disturbances: 0-None Visual Disturbances: 0-None Headache: 1-Very Mild CIWA-Ar Total Score: 8 S Progress Note (SOAP) Subjective: c/o mild headache/shakes, anxiety, and sweats. Objective: 09/29/18 10:23 Vital Signs 09/29/18 09/29/18 09/29/18 03:30 06:11 06:30 Temperature 98.0 F Pulse Rate 78 Respiratory 18 18 18 Rate Blood Pressure 101/52 L 09/29/18 09:27 Temperature 98.3 F Pulse Rate 90 Respiratory 18 Rate Blood Pressure 99/67 Lab Results WBC 2.0 K/mm3 (4.0-10.0) L 09/26/18 07:30 RBC 3.47 M/mm3 (4.00-5.60) L 09/26/18 07:30 Hgb 9.7 GM/dL (11.7-16.9) L 09/26/18 07:30 Hct 29.9 % (35.4-49) L 09/26/18 07:30 MCV 86.1 fl (80-96) 09/26/18 07:30 MCHC 32.6 g/dl (32.0-35.9) 09/26/18 07:30 RDW 20.5 % (11.9-15.9) H 09/26/18 07:30 Plt Count 36 K/MM3 (134-434) L* D 09/26/18 07:30 Sodium 141 mmol/L (136-145) 09/26/18 07:30 Potassium 3.8 mmol/L (3.5-5.1) 09/26/18 07:30 Chloride 109 mmol/L (98-107) H 09/26/18 07:30 Carbon Dioxide 27 mmol/L (21-32) 09/26/18 07:30 Anion Gap 5 MMOL/L (8-16) L 09/26/18 07:30 BUN 10.2 mg/dL (7-18) 09/26/18 07:30 Creatinine 0.6 mg/dL (0.55-1.3) 09/26/18 07:30 Random Glucose 93 mg/dL (74-106) 09/26/18 07:30 Calcium 8.1 mg/dL (8.5-10.1) L 09/26/18 07:30 Labs noted. Assessment: 09/29/18 10:23 AOX3, in no acute distress Full ROM, ambulating in the unit. Withdrawal symptoms. Plan: continue detox increase fluids
[2018-09-29] MEDS: THIAMINE HCL 100 MG TABLET (FP) PO SCH (22:14)
[2018-09-29] MEDS: MELATONIN 5 MG TABLETS PO PRN (22:15)
[2018-09-30] MEDS: chlordiazePOXIDE HCL 10 MG CAPSULE PO SCH (05:39)
[2018-09-30] MEDS: SUCRALFATE 1 GM TABLET (FP) PO SCH (05:39)
[2018-09-30 09:18] VITALS: BP 117/74; PULSE 75; TEMP 96.8
--- NOTE | 2018-09-30 10:05 | DS ---
[facility] Detox Discharge Summary Admission Date: 09/26/18 Discharge Date: 09/30/18 - History Present History: Alcohol Dependence Additional Comments: pt is stable for dc today detox protocol completed Pertinent Past History: Laboratory Tests 09/26/18 09/26/18 09/26/18 07:30 07:30 07:30 WBC 2.0 L RBC 3.47 L Hgb 9.7 L Hct 29.9 L MCV 86.1 MCH 28.1 D MCHC 32.6 RDW 20.5 H Plt Count 36 L* D MPV 8.6 D Platelet Comment No clumping noted Sodium 141 Potassium 3.8 Chloride 109 H Carbon Dioxide 27 Anion Gap 5 L BUN 10.2 Creatinine 0.6 Est GFR (CKD-EPI)AfAm 132.11 Est GFR (CKD-EPI)NonAf 113.99 Random Glucose 93 Calcium 8.1 L Total Bilirubin 2.2 H AST 64 H ALT 28 Alkaline Phosphatase 164 H Total Protein 6.6 Albumin 3.4 Urine Color Urine Appearance Urine pH Ur Specific [place] Urine Protein Urine Glucose (UA) Urine Ketones Urine Blood Urine Nitrite Urine Bilirubin Urine Urobilinogen Ur Leukocyte Esterase Urine WBC (Auto) Urine RBC (Auto) Urine Casts (Auto) U Epithel Cells (Auto) Urine Bacteria (Auto) RPR Titer Nonreactive 09/26/18 17:09 WBC RBC Hgb Hct MCV MCH MCHC RDW Plt Count MPV Platelet Comment Sodium Potassium Chloride Carbon Dioxide Anion Gap BUN Creatinine Est GFR (CKD-EPI)AfAm Est GFR (CKD-EPI)NonAf Random Glucose Calcium Total Bilirubin AST ALT Alkaline Phosphatase Total Protein Albumin Urine Color Yellow Urine Appearance Clear Urine pH 7.5 D Ur Specific [place] 1.009 L Urine Protein Negative Urine Glucose (UA) Negative Urine Ketones Negative Urine Blood Trace Urine Nitrite Negative Urine Bilirubin Negative Urine Urobilinogen 1.0 Ur Leukocyte Esterase Negative Urine WBC (Auto) 0 Urine RBC (Auto) 12 Urine Casts (Auto) 0 U Epithel Cells (Auto) 0 Urine Bacteria (Auto) 0.7 RPR Titer Vital Signs (72 hours) 09/27/18 09/27/18 09/27/18 13:06 17:55 22:23 Temperature 97.1 F L 97.9 F 98.4 F Pulse Rate 70 80 69 Respiratory 18 18 18 Rate Blood Pressure 138/78 118/75 113/70 09/28/18 09/28/1819 00:30 03:30 06:06 Temperature 98.3 F Pulse Rate 84 Respiratory 18 18 18 Rate Blood Pressure 101/60 09/28/18 09/28/18 09/28/18 06:30 10:50 13:37 Temperature 97.6 F 97.8 F Pulse Rate 102 H 75 Respiratory 16 18 18 Rate Blood Pressure 102/56 L 121/77 09/28/18 09/28/18 09/29/18 17:56 22:00 00:30 Temperature 97.5 F L 97.5 F L Pulse Rate 75 69 Respiratory 20 16 18 Rate Blood Pressure 103/68 116/70 09/29/18 09/29/18 09/29/18 03:30 06:11 06:30 Temperature 98.0 F Pulse Rate 78 Respiratory 18 18 18 Rate Blood Pressure 101/52 L 09/29/18 09/29/18 09/29/18 09:27 13:29 17:41 Temperature 98.3 F 96.3 F L 98.4 F Pulse Rate 90 94 H 85 Respiratory 18 20 16 Rate Blood Pressure 99/67 119/78 103/67 09/29/18 09/30/18 09/30/18 21:33 00:30 03:30 Temperature 97.5 F L Pulse Rate 88 Respiratory 18 18 18 Rate Blood Pressure 121/74 09/30/18 09/30/18 06:36 09:17 Temperature 97.4 F L 96.8 F L Pulse Rate 81 75 Respiratory 18 18 Rate Blood Pressure 109/75 117/74 - Physical Exam Results Vital Signs: Vital Signs Temperature 96.8 F L 09/30/18 09:17 Pulse Rate 75 09/30/18 09:17 Respiratory Rate 18 09/30/18 09:17 Blood Pressure 117/74 09/30/18 09:17 O2 Sat by Pulse Oximetry (%) Pertinent Admission Physical Exam Findings: pt admistted in acute withdrawal meets admission criteria completed detox protocol with cessation of withdrawal sx clinically stable on dc dicharge today note pt aware of low platelets and elevated lfts we discussed risks of bleeding indications for emergent attn reviewed hepatocellular ca fu onc Dr Taylor - Treatment Hospital Course: Detox Protocol Followed, Detoxed Safely, Discharged Condition Good - Medication Discharge Medications: Ambulatory Orders Spironolactone [Aldactone] 100 mg PO DAILY 12/11/15 Furosemide [Lasix] 40 mg PO DAILY 10/03/17 Metoprolol Tartrate 0.5 tab PO BID 10/03/17 Rifaximin [Xifaxan] 550 mg PO BID 10/03/17 Sucralfate [Carafate -] 1 gm PO TID 10/03/17 Multivitamin with Iron [Daily Tip with Iron] 1 tablet PO DAILY 09/25/18 Omeprazole 20 mg PO BID 09/25/18 - Diagnosis (1) Alcohol dependence with uncomplicated withdrawal Current Visit: Yes Status: Acute (2) Cirrhosis of liver Current Visit: Yes Status: Chronic Qualifiers: Hepatic cirrhosis type: alcoholic cirrhosis Ascites presence: with ascites Qualified Code(s): K70.31 - Alcoholic cirrhosis of liver with ascites (3) HTN (hypertension) Current Visit: Yes Status: Chronic Qualifiers: Hypertension type: essential hypertension Qualified Code(s): I10 - Essential (primary) hypertension (4) Alcohol abuse Current Visit: No Status: Acute - AMA Did Patient Leave Against Medical Advice: No
== END 2018-09-30 10:21 | disposition home or self-care (01) | DRG 775 ==
LOC: YASAS 17:07 → Y3N 09-26 02:05
PROVIDERS: ADMIT Surgery; ATTEND Surgery
PROC: HZ2ZZZZ Detoxification Services for Substance Abuse Treatment (ICD-10-PCS; principal; 2018-09-26)
DX: F10.230 Alcohol dependence with withdrawal, uncomplicated (principal); D61.818 Other pancytopenia; K70.31 Alcoholic cirrhosis of liver with ascites; I10 Essential (primary) hypertension; E80.6 Other disorders of bilirubin metabolism; R94.5 Abnormal results of liver function studies; Z91.013 Allergy to seafood
CPT/HCPCS: 36415; 80053; 81003; 85027; 86593; 93005; 93010